=== PATIENT | female | born 1980 | race Caucasian/White ===

== ENCOUNTER 2020-12-14 14:59 | Outpatient (REF) | payer BC, SELFPAY ==
[2020-12-21 05:42] LABS: HPV 16 RNA NOT DETECTED (NOT DETECTED); HPV mRNA E6/E7 rflx Detected (Not Detected)
== END 2020-12-14 15:00 | disposition home or self-care (01) ==
LOC: HO.LAB 14:59
PROVIDERS: PCP Internal Medicine; Visit Provider Advanced Practice Midwife
DX: Z01.419 Encounter for gynecological examination (general) (routine) without abnormal findings (principal); Z11.51 Encounter for screening for human papillomavirus (HPV)
CPT/HCPCS: 87624; 87625; 88142

== ENCOUNTER 2022-02-11 09:39 | Outpatient (REF) | payer BC, SELFPAY ==
--- NOTE | ~2022-02-11 | MM_ITS ---
EXAMINATION: MM SCREENING DIGITAL BREAST TOMOSYNTHESIS, BILATERAL CLINICAL INFORMATION: Screening. Asymptomatic. Age 41. No prior breast imaging. No known family history breast cancer. The lifetime risk of breast cancer based on the Tyrer-Cuzick Model is 12%. COMPARISON: None (current study represents initial baseline exam). TECHNIQUE: Digital breast tomosynthesis is performed in both the craniocaudal and mediolateral oblique views along with computer-aided detection (CAD). Synthesized 2D images are generated from the tomosynthesis. FINDINGS: There are scattered areas of fibroglandular density (ACR BI-RADS breast composition Category b). There are no significant masses, abnormal calcifications, or other abnormalities. The axilla and skin contours are unremarkable. MM/MM tomosynthesis screening BI IMPRESSION: No mammographic evidence of malignancy. ASSESSMENT: BI-RADS 1: Negative RECOMMENDATION: Routine annual mammography screening. This patient's information was entered into a reminder system with a target due date for their next mammogram.
== END 2022-02-11 09:40 | disposition home or self-care (01) ==
LOC: HO.MAMMO 09:39
PROVIDERS: Visit Provider Advanced Practice Midwife
DX: Z12.31 Encounter for screening mammogram for malignant neoplasm of breast (principal)
CPT/HCPCS: 77063; 77067

== ENCOUNTER 2023-02-05 14:22 | Outpatient (REF) | payer BC, SELFPAY ==
[2023-02-11 06:34] LABS: HPV mRNA E6/E7 rflx Not Detected (Not Detected)
== END 2023-02-05 14:23 | disposition home or self-care (01) ==
LOC: HO.LNP 14:22
PROVIDERS: PCP Internal Medicine; Visit Provider Advanced Practice Midwife
DX: Z01.419 Encounter for gynecological examination (general) (routine) without abnormal findings (principal); Z11.51 Encounter for screening for human papillomavirus (HPV)
CPT/HCPCS: 87624; 88142

== ENCOUNTER 2023-02-05 14:22 | Outpatient (AMB) | payer BC, SELFPAY ==
--- NOTE | 2023-02-05 14:50 | MHC.OFFVIS ---
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 Scribed for SKYE Ashby by Becki Thurman medical communication specialist, on 02/05/2023 at 3:08 pm EST. Media Assistant: Media Assistant Present (Noris) Allergies amoxicillin Allergy (Unknown, Verified 02/05/23 14:51) stomach upset penicillin V Allergy (Unknown, Verified 02/05/23 14:51) stomach upset Is last menstrual period known: Yes Last menstrual period: 01/22/23 HPI HPI Comments History of Present Illness Details She is a premenopausal woman presenting for annual exam. Doing well with no cigar packer and sorter concerns. She admits to eating healthy and tries to stay active with exercise. Currently sexually active with female partner. Denies vaginal itching and irritation. Denies family hx of breast and colon cancer. Last pap smear 12/14/20. Last mammogram 02/11/22. [facility] Medical History Abnormal Pap smear of cervix Surgical History Hx of rhinoplasty Family History Father Stomach cancer Maternal Aunt Ovarian cancer Mother Diabetes Coronary artery disease Social History Household Members: None Housing: Apartment Alcohol intake: current Alcohol intake frequency: holidays/special occasions only Patient Tobacco Use Status: Never used Tobacco Current occupational status: employed Current occupation: [employer] Sexual orientation: Lesbian/Lua/Homosexual Female Reproductive History Menstrual Age of Menarche: 15 Duration of menses: 3-5 days Date of last menstrual period: 01/22/23 Total pregnancies: 0 Date of last pap smear: 12/14/20 (lgsil +hpv) History of abnormal pap smear: Yes Date of Mammogram: 02/11/22 (Birad 1) Physical Exam Vital Signs: Last Vital Signs BP 112/70 02/05/23 14:51 BMI result Body Mass Index 30.6 Const General: cooperative, healthy appearing, no acute distress, well developed and alert Orientation/consciousness: patient oriented x3 HEENT Head: Yes normal to inspection Eyes General: appearance normal, both eyes and all related structures Neck Neck: Yes normal visual inspection Thyroid: Thyroid normal Chest Chest palpation & inspection: normal inspection of the chest Breast/axilla inspection: normal inspection of the breasts (no puckering, dimpling, peau de orange, retraction, discharge, masses) Breast/axilla palpation: normal palpation of the breasts Resp Effort & Inspection: normal respiratory effort GI Inspection: Yes normal to inspection Palpation (GI): Soft to palpation (to palpation) Rectal Exam - Female: deferred General: Yes bladder normal to inspection External Female Exam: normal external appearance and normal appearance of the urethra Speculum Exam - Vagina: normal appearance of the vagina, normal palpation and normal vaginal discharge Speculum Exam - Cervix: normal appearance of the cervix and normal palpation Bimanual exam- vagina & uterus: normal palpation and normal palpation Bimanual Exam- Adnexa, other: normal adnexae and no masses Skin General skin exam: no rashes or lesions noted Neuro General: patient oriented x3 Cognition (Neuro): normal cognition Extrem General: Yes normal to inspection Psych Attitude: cooperative Thought process: Normal thought process present Assessment & Plan Assessment & Plan (1) Encounter for annual routine gynecological examination: Code(s): Z01.419 - Encounter for gynecological examination (general) (routine) without abnormal findings Plan: Discussed: Current recommendations for pap smears per ASCCP guidelines Breast awareness and periodic self breast exams. Mammogram ordered. Maintaining a healthy lifestyle including a well balanced diet and routine exercise. All of her questions and concerns were addressed to the best of my ability. RTO in one year for AG. Orders: Orders MM tomosynthesis screening BI Today Z12.31 - Encounter for screening mammogram for malignant neoplasm of breast Pap Smear Today Z01.419 - Encounter for gynecological examination (general) (routine) without abnormal findings Coding Level of Care Code Est Pt Prev Care 40-64y(83550) Diagnoses Encounter for annual routine gynecological examination Z01.419
[2023-02-05 14:51] VITALS: BP 112/70; BMI 30.6
== END 2023-02-05 15:35 | disposition home or self-care (01) ==
LOC: HO.HWS 14:22
PROVIDERS: PCP Internal Medicine; Visit Provider Advanced Practice Midwife
DX: Z01.419 Encounter for gynecological examination (general) (routine) without abnormal findings (principal)
CPT/HCPCS: 99396

== ENCOUNTER 2023-03-22 09:36 | Outpatient (REF) | payer BC, SELFPAY | END 2023-03-22 09:37 | disposition home or self-care (01) | LOC: HO.MAMMO 09:36 | PROVIDERS: PCP Internal Medicine; Visit Provider Advanced Practice Midwife | DX: Z12.31 Encounter for screening mammogram for malignant neoplasm of breast (principal) | CPT/HCPCS: 77063; 77067 ==

== ENCOUNTER → 2023-03-22 09:45 | Outpatient (BNV) | payer BC, SELFPAY | PROVIDERS: PCP Internal Medicine; Visit Provider Radiology Diagnostic Radiology | DX: Z12.31 Encounter for screening mammogram for malignant neoplasm of breast (principal) | CPT/HCPCS: 77063; 77067 ==

== ENCOUNTER 2024-02-12 14:02 | Outpatient (AMB) | payer BC, SELFPAY ==
--- NOTE | 2024-02-12 14:09 | MHC.OFFVIS ---
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 Doing well with no concerns. She tries to eat healthy and stays active with exercise, outdoors activities. Regular monthly menses. Currently is not sexually active. She denies vaginal itching and irritation. STI screening offered; she accepts. Denies family history of breast, ovarian or colon cancer. Last pap smear 2022, negative. Mammogram: 2022. [facility] Medical History Basal cell carcinoma Abnormal Pap smear of cervix Surgical History Hx of rhinoplasty Family History Father Stomach cancer Maternal Aunt Ovarian cancer Mother Diabetes Coronary artery disease Social History Household Members: None Housing: Apartment Alcohol intake: current Alcohol intake frequency: holidays/special occasions only Patient Tobacco Use Status: Never used Tobacco Current occupational status: employed Current occupation: [employer] Sexual orientation: Lesbian/Lua/Homosexual Female Reproductive History Menstrual Age of Menarche: 15 Date of last menstrual period: 02/04/24 Total pregnancies: 0 Date of last pap smear: 02/05/23 (neg pap and hpv) History of abnormal pap smear: Yes (see intake note) Date of Mammogram: 03/22/23 (Birad 1) Review of Systems Const All systems reviewed & are unremarkable except as noted in HPI and below Reports as per HPI Eyes Reports no additional complaints ENT Reports no additional complaints Card Reports no additional complaints Resp Reports no additional complaints GI Reports as per HPI and Reports no additional complaints Reports as per HPI Musc Reports no additional complaints Skin/Breast Reports as per HPI Neuro Reports no additional complaints Psych Reports no additional complaints Endo Reports no additional complaints Miguel Angel/Lymph Reports no additional complaints Aller/Immun Reports no additional complaints Physical Exam Vital Signs: Last Vital Signs BP 116/74 02/12/24 14:15 BMI result Body Mass Index 31.1 Const General: cooperative, healthy appearing, no acute distress, well developed and alert Orientation/consciousness: patient oriented x3 HEENT Head: Yes normal to inspection Eyes General: appearance normal, both eyes and all related structures Neck Neck: Yes normal visual inspection Thyroid: Thyroid normal Chest Chest palpation & inspection: normal inspection of the chest and other (no puckering, dimpling, peau de orange, retraction, discharge, masses) Breast/axilla inspection: normal inspection of the breasts Breast/axilla palpation: normal palpation of the breasts Resp Effort & Inspection: normal respiratory effort GI Inspection: Yes normal to inspection Palpation (GI): Soft to palpation Rectal Exam - Female: deferred General: Yes bladder normal to palpation External Female Exam: normal external appearance and normal appearance of the urethra Speculum Exam - Vagina: normal appearance of the vagina, normal palpation and normal vaginal discharge Speculum Exam - Cervix: normal appearance of the cervix and normal palpation Bimanual exam- vagina & uterus: normal bimanual exam, normal palpation, uterine size normal, bladder normal to palpation, normal palpation and non-tender Bimanual Exam- Adnexa, other: no masses Skin General skin exam: no rashes or lesions noted Rashes: no rashes Neuro General: patient oriented x3 Cognition (Neuro): normal cognition Extrem General: Yes normal to inspection Psych Attitude: cooperative Thought process: Normal thought process present Assessment & Plan Assessment & Plan (1) Encounter for annual routine gynecological examination: Code(s): Z01.419 - Encounter for gynecological examination (general) (routine) without abnormal findings Category: Medical Plan: Discussed: Current recommendations for pap smears per ASCCP guidelines. Breast awareness and periodic breast exams. Maintain a healthy lifestyle including a well balanced diet and routine exercise. Mammogram yearly. Patient verbalizes understanding and agrees to the plan of care. She was given opportunity to ask questions and all questions were answered to the best of my ability. RTO in one year for annual dental office receptionist examination. This note is constructed using voice recognition software. While every effort has been made to ensure accuracy, argon tester errors may have been included. Orders: Orders MM tomosynthesis screening BI Today Z12.31 - Encounter for screening mammogram for malignant neoplasm of breast PAP + HPV E6/E7 rfx 18/45 Today Z01.419 - Encounter for gynecological examination (general) (routine) without abnormal findings Coding Level of Care Code Est Pt Prev Care 40-64y(35315) Diagnoses Encounter for annual routine gynecological examination Z01.419
[2024-02-12 14:15] VITALS: BP 116/74; BMI 31.1
== END 2024-02-12 14:58 | disposition home or self-care (01) ==
PROVIDERS: PCP Internal Medicine; Visit Provider Advanced Practice Midwife
DX: Z01.419 Encounter for gynecological examination (general) (routine) without abnormal findings (principal)
CPT/HCPCS: 99396

== ENCOUNTER 2024-02-12 14:02 | Outpatient (REF) | payer BC, SELFPAY ==
[2024-02-16 14:04] LABS: HPV mRNA E6/E7 Not Detected (Not Detected)
== END 2024-02-12 14:03 | disposition home or self-care (01) ==
LOC: HO.LNP 14:02
PROVIDERS: PCP Internal Medicine; Visit Provider Advanced Practice Midwife
DX: Z01.419 Encounter for gynecological examination (general) (routine) without abnormal findings (principal); Z11.51 Encounter for screening for human papillomavirus (HPV)
CPT/HCPCS: 87624; 88175

== ENCOUNTER 2024-03-27 08:52 | Outpatient (REF) | payer BC, SELFPAY ==
--- NOTE | ~2024-03-27 | MM_ITS ---
EXAMINATION: MM SCREENING DIGITAL BREAST TOMOSYNTHESIS, BILATERAL CLINICAL INFORMATION: Screening. Asymptomatic. COMPARISON: Mammography: Comparison is made with available priors TECHNIQUE: Digital breast mammography with tomosynthesis is performed in both the craniocaudal and mediolateral oblique views along with computer-aided detection (CAD). FINDINGS: There are scattered areas of fibroglandular density (ACR BI-RADS breast composition Category b). There are no significant masses, abnormal calcifications, or other abnormalities. MM/MM tomosynthesis screening BI IMPRESSION: No mammographic evidence of malignancy. ASSESSMENT: BI-RADS BI-RADS 1 - Negative RECOMMENDATION: Routine annual mammography screening. 1 year F/U This examination should not preclude the clinical evaluation of a suspicious palpable abnormality. This patient's information was entered into a reminder system with a target due date for their next mammogram. Electronically signed by: Nusrat Pgua DO 04/08/2024 11:15 AM EDT
== END 2024-03-27 08:53 | disposition home or self-care (01) ==
LOC: HO.MAMMO 08:52
PROVIDERS: Visit Provider Advanced Practice Midwife
DX: Z12.31 Encounter for screening mammogram for malignant neoplasm of breast (principal)
CPT/HCPCS: 77063; 77067

== ENCOUNTER → 2024-03-27 09:00 | Outpatient (BNV) | payer BC, SELFPAY | PROVIDERS: Visit Provider Internal Medicine | DX: Z12.31 Encounter for screening mammogram for malignant neoplasm of breast (principal) | CPT/HCPCS: 77063; 77067 ==

== ENCOUNTER 2025-04-02 08:58 | Outpatient (REF) | payer BC, SELFPAY ==
--- OUTSIDE RECORDS SUMMARY | 2025-04-02 09:01 | XMS_ITS ---
Author Name [facility] Organization Unknown Problems Problem Status Onset Date Problem Type Date of Resoluti on Source Rash and other nonspecific skin eruption active 2023-12-09 [facility]Act [facility] Care Team Organization Name Specialty Phone Email Start Date End Da te [facility] NO PROVIDER Primary Care 12/10/2023 [facility] NO PROVIDER Primary Care 12/09/2023
--- OUTSIDE RECORDS SUMMARY | 2025-04-02 09:01 | XMS_ITS | Clinical Summary ---
Author Organization [facility] Address [address] [place] [address] Care Team Providers Care Iron Bender Name Role Phone Pcp, No Primary Care Provider Unavailabl e Allergies Active Allergy Reactions Criticality Noted Date Comments Penicillins GI Intolerance/Nausea/Vomiting Low 07/07 Medications azithromycin (ZITHROMAX) 500 MG tabletIndications :Sore throat,Exudative pharyngitis Take 1 tab daily for 7 days 7 tablet 07/21/2019 Active Family History Medical History Relation Name Comments Hypertension Father Heart disease Mother Relation Name Status Comments Father Alive Mother Alive Social History Tobacco Use Types Packs/Day Years Used Date Smoking Tobacco: Never Assessed Comments Unknown Sex and Gender Information Value Date Recorded Sex Assigned at Not on file Legal Sex Female 9:38 AM EST Gender Identity Not on file Sexual Orientation Not on file Last Filed Vital Signs Vital Sign Reading Time Taken Comments Blood Pressure 125/80 07/21/2019 9:52 AM EST Pulse 71 07/21/2019 9:52 AM EST Temperature 37 C (98.6 F) 07/21/2019 9:52 AM EST Respiratory Rate - - Oxygen Saturation 98% 07/21/2019 9:52 AM EST Inhaled Oxygen Concentration - - Weight 73.9 kg (163 lb) 07/21/2019 9:52 AM EST Height 165.1 cm (5' 5 ) 07/21/2019 9:52 AM EST Body Mass Index 27.12 07/21/2019 9:52 AM EST Plan of Treatment Health Maintenance Due Date Last Done Comments Hepatitis C Virus Screening 1981 HIV Screening 1994 DTaP/Tdap/Td Vaccines (1 - Tdap) 2000 Hepatitis B Vaccines (1 of 3 - 19+ 3-dose series) 2000 Pap Smear (Ages 21-65) 2002 Mammogram 2021 Influenza Vaccine 02/04/2025 COVID-19 Vaccine (2023-2 5 season) 2025 HPV Vaccines (No Doses Required) Completed Pneumococcal Vaccine: Pediat briana (0-5 Years) and At-Risk Patients (6 to 49 Years) Aged Out No longer eligible b ased on patient's age to complete this topic Insurance [facility] Care Teams Iron Bender Relationship Specialty Start Date End Date Pcp, No PCP - General General Medicine 07/07/19
--- OUTSIDE RECORDS SUMMARY | 2025-04-02 09:01 | XMS_ITS | Patient Health Record ---
[facility] Address [address] [place] [address] Care Team Providers Care Technology Risk Intern Name Role Phone Jazmyn GLEZ, Vesna Rashid Primary Care Provider Un available Sandoval Maksim Unavailable [phone] Allergies Allergen (clinical drug ingredient) Drug/Non Drug Allergy documented on EMR Reaction Allergy Type Onset Date Status amoxicillin Amoxicillin upset stomach Drug Allergy Active Penicillin upset stomach Drug Allergy Ac tive Reason For Referral No Information Medications Medication SIG (Take, Route, Fr equency, Duration) Notes Start Date End Date Status Lamisil 250 250 MG 1 Tab Oral Daily; Duration: 90 Active Problems Problem Type SNOMED Code ICD Code Onset Dates Problem Status W/U Status Risk Notes Problem Onychomycosis (403047508) Onychomycosis (110.1) Active confirmed Problem Pain in limb (41051864) Pain in Limb (729.5) Active confirmed Problem Congenital pes planus (55741193) Flat Foot, Congenital (754.61) Active confirmed Problem Tinea pedis (7866890) Tinea Pedis (110.4) Active confirmed Plan Of Treatment Pending Test Test Name Order Date *Liver Function Test (LFT) 10/30/2011 [id number]-[id number] Plate 02/20/2012 Insurance Providers Payer Name Payer Address Payer Phone Subscriber Number Group Number Insured Name Patient Relationship to Insured Coverage Start Date Coverage End Date [facility] [address] [place] [address] [phone] [id number] Zulma Bennett Self - patient is the insured 2 Medical (General) History Medical History History ICD Code chicken pox joint implants/screws Surgical History Surgery Date(Month/Year) rhinoplasty 2006
== END 2025-04-02 08:59 | disposition home or self-care (01) ==
LOC: HO.MAMMO 08:58
PROVIDERS: Visit Provider Advanced Practice Midwife
DX: Z12.31 Encounter for screening mammogram for malignant neoplasm of breast (principal)
CPT/HCPCS: 77063; 77067

== ENCOUNTER → 2025-04-02 09:15 | Outpatient (BNV) | payer BC, SELFPAY | PROVIDERS: Visit Provider Internal Medicine | DX: Z12.31 Encounter for screening mammogram for malignant neoplasm of breast (principal) | CPT/HCPCS: 77063; 77067 ==

== ENCOUNTER 2025-05-09 14:53 | Outpatient (REF) | payer BC, SELFPAY ==
--- NOTE | ~2025-05-09 | US_ITS ---
EXAMINATION(S): 1. MM DIAGNOSTIC DIGITAL BREAST TOMOSYNTHESIS, RIGHT 2. Targeted ultrasound of the right breast CLINICAL INFORMATION: Callback from screening for right breast focal asymmetry located in the upper inner quadrant posterior depth COMPARISON: Comparison made to multiple prior, most recent April 02, 2025, and most remote February 11, 2022. TECHNIQUE: Digital breast tomosynthesis is performed in full field ML 90 degrees along with computer-aided detection (CAD). Synthesized 2D images are generated from the tomosynthesis. Spot compression tomosynthesis were obtained. FINDINGS: BREAST COMPOSITION: There are scattered areas of fibroglandular density. RIGHT BREAST: Previously suggested focal asymmetry in the upper inner quadrant is pliable with spot compression. Local parenchyma has similar appearance to prior studies as far back as 2021], and appears to represent overlapping fibroglandular breast tissue. Targeted ultrasound of the right breast was performed at the location of the mammographic finding. The survey throughout the upper inner quadrant did not reveal suspicious sonographic findings. US/US Breast RT Limited Mamm Only IMPRESSION: RIGHT BREAST: Negative, no mammographic evidence of malignancy. Normal interval follow-up is recommended in 12 months. ASSESSMENT: BI-RADS: Category 1: Negative RECOMMENDATION: 1 year F/U Results were provided to the patient at time of visit by the technologist. This patient's information was entered into a reminder system with a target due date for their next mammogram. Electronically signed by: Michael Granados MD 05/09/2025 03:41 PM [facility] Workstation: [id number]
--- OUTSIDE RECORDS SUMMARY | 2025-05-09 16:21 | XMS_ITS | Patient Health Record ---
Author Organization [facility] Address [address] [place] [address] Care Team Providers Care Medical Device Assembler Name Role Phone Jazmyn GLEZ, Vesna Rashid Primary Care Provider Un available Maksim Cagle Unavailable [phone] Allergies Allergen (clinical drug ingredient) Drug/Non Drug [...] Status W/U Status Risk Notes Problem Onychomycosis (310438422) Onychomycosis (110.1) Active confirmed Problem Pain in limb (46991963) Pain in Limb (729.5) Active confirmed Problem Congenital pes planus (00410299) Flat Foot, Congenital (754.61) Active confirmed Problem Tinea pedis (9140424) Tinea Pedis (110.4) Active confirmed Plan Of Treatment Pending Test Test Name Order Date *Liver Function Test (LFT) 10/30/2011 [id number]-[id number] Plate 02/20/2012 Insurance Providers Payer Name Payer Address Payer Phone Subscriber Number Group Number Insured Name Patient Relationship to Insured Coverage Start Date Coverage End Date [facility] [address] [place] [address] [id number] Zulma Bennett Self - patient is the insured 2 Medical (General) History Medical History History ICD Code chicken pox joint implants/screws Surgical History Surgery Date(Month/Year) rhinoplasty 2006
--- OUTSIDE RECORDS SUMMARY | 2025-05-09 16:21 | XMS_ITS | Clinical Summary ---
Author Organization [facility] Address [address] [place] [address] Care Team Providers Care Mohs Surgeon Name Role Phone Pcp, No Primary Care [...] patient's age to complete this topic Insurance [facility] Care Teams Mohs Surgeon Relationship Specialty Start Date End Date Pcp, No PCP - General General Medicine 07/07/19
== END 2025-05-09 14:54 | disposition home or self-care (01) ==
LOC: HO.MAMMO 14:53
PROVIDERS: Visit Provider Advanced Practice Midwife
DX: N64.89 Other specified disorders of breast (principal)
CPT/HCPCS: 76642; 77061; 77065

== ENCOUNTER → 2025-05-09 15:10 | Outpatient (BNV) | payer BC, SELFPAY | PROVIDERS: Visit Provider Radiology Body Imaging | DX: N64.89 Other specified disorders of breast (principal) | CPT/HCPCS: 76642; 77061; 77065 ==